=== PATIENT | female | born 1985 | race Caucasian/White ===

== ENCOUNTER 2018-11-03 12:35 | Emergency (ER) | payer OTHER, SELFPAY ==
[2018-11-03 12:48] VITALS: BP 128/80; PULSE 82; RESP 18; TEMP 36.5; O2SAT 98
--- NOTE | 2018-11-04 09:09 | W.ED.GENAD ---
Discharge Plan Discharge Details Chief Complaint: GenMedical Primary Care Provider: Gregory Evans ED Provider: Boni Gil [place] Meds and New Rx's Prescriptions: No Action zolmitriptan 2.5 MG tablet,disintegrating 2.5 mg PO DAILY PRNQty: 4 RF: 1 Contrave 1 EACH tablet extended release 2 ea PO BID Qty: 120 RF: 2 sertraline 100 MG tablet 100 mg PO DAILY Qty: 90 RF: 3 omeprazole 40 MG capsule,delayed release(DR/EC) 40 mg PO DAILY Qty: 90 RF: 3 Velivet Triphasic Regimen (28) 1 EACH tablet 1 tab-cap PO DAILY Qty: 3 RF: 6 Discharge Data Discharge Date/Time-TO BE ENTERED AT DEPARTURE: 11/03/18 13:45 HPI General Date/Time Provider Initiated Documentation: 11/03/18 13:08. HPI Narrative: Patient left before I was able to interview her. Related Data Home Medications Medication Instructions Recorded Confirmed zolmitriptan 2.5 mg PO DAILY PRN #4 tab-cap 05/28/17 11/03/18 Contrave 2 ea PO BID #120 tab-cap 09/03/17 omeprazole 40 mg PO DAILY #90 tab-cap 03/25/18 11/03/18 sertraline 100 mg PO DAILY #90 tab-cap 03/25/18 11/03/18 desogestrel-ethinyl estradiol 1 tab-cap PO DAILY #3 pack 05/13/18 11/03/18 [Velivet] Previous Rx's Medication Instructions Recorded Contrave 2 ea PO BID #120 tab-cap 09/03/17 omeprazole 40 mg PO DAILY #90 tab-cap 03/25/18 sertraline 100 mg PO DAILY #90 tab-cap 03/25/18 desogestrel-ethinyl estradiol 1 tab-cap PO DAILY #3 pack 05/13/18 [Velivet] Allergies Allergy/AdvReac Type Severity Reaction Status Date / Time Latex, Natural Rubber Allergy Intermediate Contact Unverified 11/03/18 12:54 causes swelling Penicillins Allergy Mild facial rash Unverified 11/03/18 12:54 pertussis vaccine,adsorbed Allergy Unknown Uncertain. Unverified 11/03/18 12:54 [Pertussis Vaccine,Adsorbed] Reports almost General Stated Complaint: GenMedical ROYAL: 4 PFSH Medical History Endometriosis GERD (gastroesophageal reflux disease) Morbid obesity with BMI of 50.0-59.9, adult Surgical History Colonoscopy - MAC (01/25/17) EGD - MAC (01/25/17) Family History Mother Diabetes Essential hypertension Hyperlipidemia Father Essential hypertension COPD (chronic obstructive pulmonary disease) Hyperlipidemia Stroke Grandfather Personal history of malignant neoplasm Grandmother Diabetes Heart disease Hyperlipidemia Stroke Social History Smoking/Tobacco Use Status: Former Tobacco Use Course Vital Signs Temperature 36.5 C 11/03/18 12:48 Pulse 82 11/03/18 12:48 Respiratory Rate 18 11/03/18 12:48 Blood Pressure 128/80 11/03/18 12:48 Pulse Oximetry 98 11/03/18 12:48 Temperature 36.5 C 11/03/18 12:48 Temperature Source Skin 11/03/18 12:48 Pulse 82 11/03/18 12:48 Respiratory Rate 18 11/03/18 12:48 Blood Pressure 128/80 11/03/18 12:48 Blood Pressure Position Sitting 11/03/18 12:48 Pulse Oximetry 98 11/03/18 12:48 Oxygen Delivery Method Room Air 11/03/18 12:48 Oxygen Flow Rate 0 11/03/18 12:48 Pain Level 7 11/03/18 12:48 Comment 11/03/18 12:48
== END 2018-11-03 13:45 ==
PROVIDERS: Emergency Provider Nurse Practitioner Family; PCP Family Medicine
DX: Z53.21 Procedure and treatment not carried out due to patient leaving prior to being seen by health care provider (principal)

== ENCOUNTER 2019-02-05 16:53 | Outpatient (REF) | payer OTHER, SELFPAY ==
[2019-02-09 14:52] LABS: Chlamydia Result Negative; GC Result Negative; Specimen Description URINE
== END 2019-02-05 17:13 ==
LOC: LBN 16:53
PROVIDERS: PCP Family Medicine; Visit Provider Nurse Practitioner Women's Health
DX: Z11.3 Encounter for screening for infections with a predominantly sexual mode of transmission (principal)
CPT/HCPCS: 87491; 87591

== ENCOUNTER 2019-02-17 01:04 | Outpatient (CLI) | payer OTHER, SELFPAY ==
--- NOTE | 2019-02-17 10:15 | DI.COMBO_ITS ---
SYMPTOM/DIAGNOSIS: RT BREAST LUMP, 12 O'CLOCK,DIAGNOSTIC RIGHT MAMMOGRAM: Mammograms were interpreted according to the usual protocol including computer analysis with CAD system, tomosynthesis and C view imaging. Craniocaudad and mediolateral projections of the right breast reveal moderate density of the breast tissue. There is no definable mass. There are no suspicious calcifications. Breast density, Category B. RIGHT BREAST ULTRASOUND: At ultrasound, no right breast cyst or mass is identified. SUMMARY: No evidence of malignancy. Category 1. Risk adjusted and age follow up evaluation with routine annual screening mammography starting at age 40 is suggested. SA ASSESSMENT OF FINDINGS: Negative. Category 1. Patient will receive a letter notifying them of these results. BI-RADS category B. There are scattered areas of fibroglandular density.
== END 2019-02-17 01:24 ==
PROVIDERS: PCP Family Medicine; Visit Provider Nurse Practitioner Women's Health
DX: N63.10 Unspecified lump in the right breast, unspecified quadrant (principal)
CPT/HCPCS: 76642; 77061; 77065; G0279

== ENCOUNTER 2019-04-26 10:06 | Emergency (ER) | payer OTHER, SELFPAY ==
[2019-04-26 10:10] VITALS: BP 155/82; PULSE 87; RESP 14; TEMP 36.6
--- NOTE | 2019-04-26 10:18 | ED.GENADUL_ITS ---
Discharge Plan Disposition Patient Disposition: HOME Condition: Stable Discharge Details Chief Complaint: Sorethroat Clinical Impression: Acute pharyngitis Primary Care Provider: Gregory Evans ED Provider: Deborah Guerrier Home Meds and New Rx's Prescriptions: New amoxicillin 500 mg tablet 500 mg PO BID 10 Days Qty: 20 RF: 0 Continued Mirena 20 mcg/24 hours (5 yrs) 52 mg intrauterine device 1 device IY ONCE Qty: 1 RF: 0 Curcumin 95 % powder MC RF: 0 zolmitriptan 2.5 MG tablet,disintegrating 2.5 mg PO DAILY PRNQty: 4 RF: 1 omeprazole 40 MG capsule,delayed release(DR/EC) 40 mg PO DAILY Qty: 90 RF: 3 sertraline 100 mg tablet 100 mg PO DAILY Qty: 90 RF: 3 Discharge Instructions Instructions: Pharyngitis (ED) Additional Instructions: Take the antibiotics until finished. Alternate Tylenol and Motrin as needed and directed for pain. Continue salt water garles, throat lozenges. Follow-up with your primary care doctor this week for reevaluation. Return to the emergency department if you develop any worsening or new concerning symptoms. Discharge Data Discharge Date/Time-TO BE ENTERED AT DEPARTURE: 04/26/19 10:42 Discharge Physician: Deborah Guerrier Medical Decision Making 33-year-old female who presents with sore throat and left ear pain for the past 3 days. Vitals within normal limits. Afebrile. Patient appears nontoxic. No drooling or submandibular swelling. She has bilateral tonsillar erythema and exudates. No significant edema. No peritonsillar abscess and uvula midline. No lymphadenopathy. Lungs clear to auscultation. Abdomen soft nontender without hepatosplenomegaly. Rapid strep negative. Discussed with patient at length that her exam appears consistent with strep pharyngitis due to her complaint and exudates noted. Discussed that there are various forms of strep and that are rapid strep may be negative but will send for throat culture. Due to her physical exam findings and complaint, will treat with antibiotics for presumed strep. Also discussed that as she has no significant complaints of body aches or fatigue, this does not appear consistent with mononucleosis, but this could be a possibility. Discussed that if we treat with antibiotics and this is mono, she may develop a penicillin related rash. Patient's overall presentation does appear more consistent with strep, and therefore patient would like to be treated with antibiotics. Prescription for amoxicillin given. Patient instructed to drink plenty fluids, get plenty of rest, alternate Tylenol and Motrin. She is instructed to follow- up with primary care doctor for reevaluation and to return here if worse. HPI General Mode of arrival: ambulatory . Date/Time Provider Initiated Documentation: 04/26/19 10:17 . Limitations to Documentation: no limitations . Information obtained by: patient . HPI Narrative: Patient is a 33-year-old female who presents the ED with complaint of sore throat and left ear pain for the past 3 days. She states she has been able to eat and drink but with pain. She denies any known fever, headache, neck pain, coughing, or abdominal pain. She has used [id number] salt water gargles but otherwise has not taken any other medication. Related Data Home Medications Medication Instructions Recorded Confirmed zolmitriptan 2.5 mg PO DAILY PRN #4 tab-cap 05/28/17 02/05/19 omeprazole 40 mg PO DAILY #90 tab-cap 03/25/18 02/05/19 turmeric (bulk) 95 % powder % MC gm 01/29/19 02/05/19 levonorgestrel 20 mcg/24 hours (5 1 device IY ONCE #1 each 02/05/19 02/05/19 yrs) 52 mg intrauterine device sertraline 100 mg tablet 100 mg PO DAILY #90 tab-cap 03/17/19 amoxicillin 500 mg PO BID 10 Days #20 tab 04/26/19 Previous Rx's Medication Instructions Recorded omeprazole 40 mg PO DAILY #90 tab-cap 03/25/18 levonorgestrel 20 mcg/24 hours (5 1 device IY ONCE #1 each 02/05/19 yrs) 52 mg intrauterine device sertraline 100 mg tablet 100 mg PO DAILY #90 tab-cap 03/17/19 amoxicillin 500 mg PO BID 10 Days #20 tab 04/26/19 Allergies Allergy/AdvReac Type Severity Reaction Status Date / Time Latex, Natural Rubber Allergy Intermediate Contact Unverified 04/26/19 10:15 causes swelling pertussis vaccine,adsorbed Allergy Unknown Uncertain. Unverified 04/26/19 10:15 [Pertussis Vaccine,Adsorbed] Reports almost General Stated Complaint: Sorethroat ROYAL: 4 Review of Systems Review of Systems All systems reviewed & are unremarkable except as noted in HPI and below Constitutional Reports as per HPI, Denies chills and Denies fever(s) Eyes Denies blurry vision ENT Denies dizziness, Reports otalgia, Reports sore throat and Denies throat swelling Cardiovascular Denies chest pain and Denies dyspnea Respiratory Denies cough and Denies dyspnea Gastrointestinal Denies abdominal pain, Denies diarrhea and Denies vomiting Genitourinary Denies hematuria and Denies dysuria Musculoskeletal Denies back pain and Denies numbness Integumentary/Breasts Denies lesions and Denies rash Neurologic Denies dizziness, Denies focal weakness and Denies numbness Allergic/Immunologic Denies throat swelling PFSH Medical History Endometriosis GERD (gastroesophageal reflux disease) Morbid obesity with BMI of 50.0-59.9, adult Surgical History Colonoscopy - MAC (01/25/17) EGD - MAC (01/25/17) Family History Mother Diabetes Essential hypertension Hyperlipidemia Father Essential hypertension COPD (chronic obstructive pulmonary disease) Hyperlipidemia Stroke Grandfather Personal history of malignant neoplasm Grandmother Diabetes Heart disease Hyperlipidemia Stroke Social History Smoking/Tobacco Use Status: Former Tobacco Use Drug use: Never Do you feel safe in your relationship?: Yes Female Reproductive History Menstrual control method: pills and progestin IUCD (Mirena inserted by Shell Hodge NP WZN=[id number] EXP=04/2021) History History 1 Para 1 Hx # Term Pregnancies Multiple births Hx # Pregnancies Ectopic pregnancies AB induced Hx Number of Living Children AB spontaneous Exam Const General: cooperative, healthy appearing and no acute distress HENMT Head: normal to inspection Ears: hearing grossly normal bilaterally, external ears normal and TM's normal bilaterally General nose exam: external nose normal Face and sinus: normal facial exam Mouth: oral mucosae normal Teeth and gingiva: dentition normal Throat: uvula midline, no peritonsillar masses and posterior oropharynx abnormal erythema and exudates; no edema and no foreign body Eyes General: appearance normal, both eyes and all related structures Pupils: PERRL EOM: EOM intact bilaterally Neck Neck: normal visual inspection and No submandibular swelling Lymphatic: no lymphadenopathy noted Chest Chest: normal inspection of the chest and no tenderness Resp Effort & Inspection: normal respiratory effort and able to speak in complete sentences Auscultation: clear to auscultation bilaterally Cardio Rate: regular rate Rhythm: regular rhythm GI Inspection: normal to inspection Palpation: soft, not firm, not rigid and nontender Auscultation: normal bowel sounds Skin General skin exam: no rashes or lesions noted Neuro General: alert, awake and oriented x3 Cognition: normal cognition Speech: speech normal Motor: muscle tone normal throughout Sensory Exam: no sensory deficits noted Extrem General: normal to inspection, full ROM and no edema Psych Appearance: grossly normal Mental Status: mental status grossly normal Speech and Movement: speech and movement normal Affect: normal affect Course Vital Signs Temperature 97.9 F 04/26/19 10:10 Pulse 87 04/26/19 10:10 Respiratory Rate 14 04/26/19 10:10 Blood Pressure 155/82 H 04/26/19 10:10 Temperature 97.9 F 04/26/19 10:10 Temperature Source Temporal Artery Scan 04/26/19 10:10 Pulse 87 04/26/19 10:10 Respiratory Rate 14 04/26/19 10:10 Respiratory Effort 04/26/19 10:10 Blood Pressure 155/82 H 04/26/19 10:10 Oxygen Delivery Method Room Air 04/26/19 10:10 Oxygen Flow Rate 0 04/26/19 10:10
== END 2019-04-26 10:42 | disposition home or self-care (01) ==
PROVIDERS: Emergency Provider Physician Assistant; PCP Family Medicine
DX: J02.9 Acute pharyngitis, unspecified (principal); H92.02 Otalgia, left ear
CPT/HCPCS: 87880; 99283; 87081

== ENCOUNTER 2019-07-28 00:24 | Outpatient (CLI) | payer OTHER, SELFPAY ==
--- NOTE | 2019-07-28 07:58 | DI.US_ITS ---
SYMPTOM/DIAGNOSIS: ENDOMETRIOSIS /PELVIC PAIN /DYSMENORRHEA N80.9 PELVIC ULTRASOUND: 07/28 Pelvic ultrasound was performed transabdominally and transvaginally. Please see the accompanying data sheet for measurements of pelvic structures. There is an IUD in place in the endometrial cavity. Uterus is otherwise unremarkable in appearance. The ovaries have a normal follicular appearance. No free fluid identified in the cul de sac. CONCLUSION: Negative pelvic ultrasound with IUD in place.
== END 2019-07-28 00:44 ==
PROVIDERS: PCP Family Medicine; Visit Provider Obstetrics & Gynecology
DX: N80.9 Endometriosis, unspecified (principal); R10.2 Pelvic and perineal pain; N94.6 Dysmenorrhea, unspecified; Z97.5 Presence of (intrauterine) contraceptive device
CPT/HCPCS: 76830; 76856

== ENCOUNTER 2019-08-04 08:39 | Outpatient (CLI) | payer OTHER, SELFPAY ==
[2019-08-04 09:45] LABS: HCT 40.5 % (36.0-46.0); HGB 12.9 g/dL (12.0-15.5); Mean Corp. HGB Concentration 31.9 g/dL (32.0-36.0); Mean Corpuscular Hemoglobin 29.5 pg (27.0-33.0); Mean Corpuscular Volume 92.7 fL (80-95); Mean Platelet Volume 9.5 fL (8.0-11.0); Platelet Count 284 x1000/uL (130-400); RBC 4.37 m/cumm (4.00-5.20); RBC Distribution Width 13.2 % (11.7-14.6); White Blood Cell Count 9.82 k/cumm (4.4-10.8)
== END 2019-08-04 08:59 ==
PROVIDERS: PCP Family Medicine; Visit Provider Obstetrics & Gynecology
DX: R10.2 Pelvic and perineal pain (principal); N92.1 Excessive and frequent menstruation with irregular cycle; N94.6 Dysmenorrhea, unspecified; Z01.812 Encounter for preprocedural laboratory examination; Z01.818 Encounter for other preprocedural examination
CPT/HCPCS: 36415; 85027; 86850; 86900; 86901

== ENCOUNTER 2019-08-05 14:11 | Observation (INO) | payer OTHER, SELFPAY ==
[2019-08-05] VITALS (12 sets, daily range): BP systolic 91–122; BP diastolic 39–70; PULSE 63–79; RESP 11–22; TEMP 36.3–37.1; O2SAT 88–100
[2019-08-05] MEDS: Lactated Ringers 1,000 ML 125 ML IV ×2 (08:55→13:00)
[2019-08-05] MEDS: ceFAZolin 2 GM/50 ML BAG IVPB (09:31)
[2019-08-05] MEDS: Vasopressin 20 UNITS/ML VIAL (11:40)
--- NOTE | 2019-08-05 11:47 | UTER_PTH ---
PATIENT: KARMEN OBREGON LOC: OBS U#:[id number] AGE/SX: 33/F ROOM: OBS.306 RE08/05/[address]: Michael Sellers MD : [id number] BED: A DIS: 08/05/2019 SPEC #: [id number] RECD: 08/05/19 16:22 STATUS: AZIZA REQ #: [id number] TOYIN: 08/05/19 11:[address]: Michael Selelrs DEPT: Surgical Specimen RECD BY: Mechelle Adams ENTERED: 08/05/19 16:22 SP TYPE: UTER OTHR DR: Gregory Evans MD Tissues: 1 - UTERUS W OR W/O OVARIES(NOT TUMOR/PROLAPSE) Procedures: GROSS AND MICRO LEVEL 5 Comments: [id number]
[2019-08-05] MEDS: Bupivacaine 0.25% Pres-Free 30 ML VIAL (12:48)
--- NOTE | 2019-08-05 15:12 | NUR.NOTE ---
Arrived on bed from PACU. IV of LR infusing via R periph. line. Will to BSD, draining blue urine. SCD's in place. Nursing Note:
[2019-08-05] MEDS: Acetaminophen 500 MG TAB 1000 MG PO (16:09)
[2019-08-05] MEDS: Ketorolac 30 MG/ML VIAL IVP (18:19)
[2019-08-05] MEDS: Normal Saline Flush 10 ML SYR IV (18:19)
--- NOTE | 2019-08-05 19:08 | ROE_ITS ---
Date of service: 08/05/19 Time of Service: 19:08 Operative Note Operative Note DATE OF PROCEDURE: 08/05/19 PRE-OP DIAGNOSIS: 1. Pelvic pain / Endometriosis POST-OP DIAGNOSIS: same PROCEDURE: LAVH, bilateral salpingectomy, cystoscopy SURGEON: Michael Sellers ASSISTING SURGEON: Bharath Novak ANESTHESIA: GETA ESTIMATED BLOOD LOSS: 200 PATHOLOGY: other (Uterus with fallopian tubes) COMPLICATIONS: None Patient was transported to: PACU Patient's condition: stable Findings: 1. Hyperemic and inflamed appearance to pelvic organs and peritoneum. 2. Normal size uterus. Ovaries were grossly normal. 3. Normal postoperative cystoscopy. Procedure Description: The patient was taken to the operating room and after adequate general anesthesia the patient was placed in lithotomy position. The patient was prepped and draped in the usual sterile manner. A Will catheter was placed in the bladder draining clear urine. A TransactionTree uterine manipulator was placed as well. The surgeon was regloved. Attention was then turned to the patient's abdomen. The skin and subcutaneous tissues at the umbilicus were infiltrated with 0.25% Marcaine solution. A small infraumbilical skin incision was then made with a #15 blade scalpel. Sharp dissection was carried down to the underlying layer fascia. The fascia was grasped and elevated with 2 Charis clamps. The fascia was incised with a 15 blade scalpel and the peritoneum was entered with a hemostat. S retractors were placed. 2 sutures of 0 Vicryl were placed on either side of the fascial incision. A 10 mm balloon Treviño trocar was advanced. A pneumoperitoneum to approximately 15 mmHg was established with carbon dioxide. Two 5 mm trochars were placed in the right and left lower quadrants both under direct visualization. Dissection was first carried across the left mesosalpinx with the LigaSure device. Dissection was carried across the left suspensory ligament and round ligament. Dissection was carried down the broad ligament to the level of the uterine vessels. The vesicouterine flap was dissected to the midline also with the LigaSure device. Attention was then turned to the opposite side where similar procedure was carried out. The bladder flap was reflected inferiorly with both blunt and sharp dissection using endoscopic Kitners. Excellent hemostasis was noted. Attention was then turned to the vaginal portion of the procedure. The patient was repositioned. A weighted speculum was placed in the vagina with good visualization of the cervix. The paracervical tissues were infiltrated with vasopressin (20 units in 60 cc of saline) solution. A circumferential incision was made with a #10 blade scalpel at the cervicovaginal junction. The anterior and posterior planes were developed bluntly. The posterior cul-de-sac was entered sharply with Delgado scissors. A longbilled weighted speculum was inserted. Dissection was carried anteriorly and the anterior cul-de-sac was also entered sharply. A right ankle retractor was placed reflecting the bladder anteriorly. The uterosacral ligaments were crossclamped bilaterally with Michelle clamps. Transected with Delgado scissors and suture ligated with a transfix suture of 0 Vicryl in a Michelle stitch. Suture tags were held. 2 additional pedicles across the uterine arteries were also crossclamped with Michelle clamps. These were transected and suture-ligated with a transfix suture of 0 Vicryl. A small branch of the left umbilical artery was bleeding. This was grasped with a right angle clamp and suture ligated with 0 Vicryl. Excellent hemostasis was noted. The uterus was removed easily. All other pedicles were examined and were noted to be hemostatic. The uterosacral ligaments were incorporated into the vaginal angles with a 2 previously placed sutures of 0 Vicryl and with the use of a free needle. The median defect in the vaginal cuff was reapproximated with int errupted vertical mattress sutures of 0 Vicryl. The Will catheter was removed. 5 mL's of indigo-carmine was given intravenously. A 5 mm 30 degree cystoscope with normal saline distention media was advanced without difficulty. The bladder wall was noted to be intact and free of trauma. There was strong reflux of indigocarmine from both UOs. The cystoscope was removed and Will catheter replaced. The surgeon was regloved and regowned. Attention was then turned to the patient's abdomen. The pneumoperitoneum was reestablished. The laparoscope was reinserted. A thorough irrigation of the pelvis was performed. There are several small minor bleeders along the vaginal cuff. These were cauterized with the LigaSure device. Excellent hemostasis was noted. FloSeal was placed along the vaginal cuff. The 5 mm trochars were removed under direct visualization. These were noted to be hemostatic. The abdomen was desufflated and the 10 mm trocar was removed. The fascia at the umbilicus was closed with the 2 previously placed sutures of 0 Vicryl. The skin at each incision was closed with interrupted sutures of 4-0 Monocryl and Dermabond was applied. The procedure was concluded at this point. Sponge, lap and needle counts were correct at the conclusion of the procedure. The patient was transferred to PACU in stable condition.
== END 2019-08-05 18:30 | disposition home or self-care (01) ==
LOC: OBS 15:10
PROVIDERS: Admitting Provider Obstetrics & Gynecology; PCP Family Medicine; Visit Provider Obstetrics & Gynecology
PROC: 0UT9FZZ Resection of Uterus, Via Natural or Artificial Opening With Percutaneous Endoscopic Assistance (ICD-10-PCS; CPT 58552; principal; 2019-08-05 10:00)
DX: R10.2 Pelvic and perineal pain (principal); N80.9 Endometriosis, unspecified; D25.1 Intramural leiomyoma of uterus; N94.89 Other specified conditions associated with female genital organs and menstrual cycle; N72 Inflammatory disease of cervix uteri; N83.8 Other noninflammatory disorders of ovary, fallopian tube and broad ligament; N94.6 Dysmenorrhea, unspecified; K21.9 Gastro-esophageal reflux disease without esophagitis
CPT/HCPCS: 58552; 52000; 88307; J0131; J0690; J1100; J1885; J2250; J2405; J3010